=== PATIENT | male | born 1955 | race Caucasian/White ===

== ENCOUNTER 2017-02-09 23:42 | Emergency (ER) | payer MEDICARE, MEDICAID ==
[~2017-02-09] VITALS: Ht 165.1 cm; Wt 64.0 kg
[~2017-02-09 23:42] MED LIST: ACET-2178 PO; CLON0.1T PO; DOCU-150 PO; LACT10SO PO; LORA-250 PO; MYCO180T3 PO; PRED5TAB48 PO; PROT40 PO
[2017-02-10] MEDS ORDERED: ONDANSETRON HCL 4MG/2ML VIAL IV STA (00:49)
[2017-02-10] MEDS ORDERED: SODIUM CHLORIDE 0.9% 1,000 ML IV ONE (00:49)
[2017-02-10] MEDS ORDERED: MORPHINE SULFATE 4 MG/ML CPJ (NOT FOR IM USE) IV STA (00:49)
[2017-02-10] MEDS ORDERED: LEVOFLOXACIN 750MG PREMIX 150 ML IV ONE (01:00)
[2017-02-10 01:16] LABS: CLARITY URINE CLEAR (CLEAR); COLOR URINE YELLOW (YELLOW); GLUCOSE URINE NEGATIVE (NEGATIVE); KETONES URINE NEGATIVE (NEGATIVE); LEUKOCYTE ESTERASE URINE NEGATIVE (NEGATIVE); NITRITE URINE NEGATIVE (NEGATIVE); OCCULT BLOOD URINE NEGATIVE (NEGATIVE); PH URINE 6.5 (4.5-8.0); PROTEIN URINE NEGATIVE (NEGATIVE); SPECIFIC GRAVITY URINE 1.007 (1.005-1.030); UROBILINOGEN URINE 0.2 E.U./dL (0.2-1.0)
[2017-02-10 01:30] LABS: HEMATOCRIT. 41.4 % (42.0-52.0); HEMOGLOBIN. 14.4 g/dL (14.0-18.0); MEAN CORPUSCULAR HEMOGLOBIN 30.3 pg (28.0-32.0); MEAN CORPUSCULAR HGB CONC 34.7 g/dL (31.0-37.0); MEAN CORPUSCULAR VOLUME 87.2 fL (80.0-94.0); MEAN PLATELET VOLUME 6.6 fl (7.4-10.4); PLATELET 197 x1000/uL (130-400); RED BLOOD CELL COUNT 4.75 mill/uL (4.7-6.1)
[2017-02-10 01:37] LABS: CHLORIDE 92 mEq/L (98-107); INDEX HEMOLYSI 3 (1-3); INDEX ICTERIC 1 (1-4); INDEX LIPEMIC 1 (1-3); PROTHROMBIN TIME 10.7 sec
[2017-02-10 01:45] LABS: DIFFERENTIAL COMMENT 1
[2017-02-10 01:46] LABS: ALANINE AMINOTRANSFERASE 25 IU/L (13-61); ALBUMIN 3.5 g/dL (3.4-5.0); ANION GAP 16; CALCIUM 9.3 mg/dL (8.5-10.1); CARBON DIOXIDE 24 mEq/L (21-32); LIPASE 128 IU/L (73-393); UREA NITROGEN BLOOD 17 mg/dL (7-21); eGFR > 60 mL/min (>60)
[2017-02-10 03:27] LABS: PLATELET ESTIMATE NORMAL
[2017-02-10 05:12] VITALS: BP 19/86
== END 2017-02-10 05:12 | disposition home or self-care (01) ==
LOC: ER 23:42
DX: R35.8 Other polyuria (principal); R33.9 Retention of urine, unspecified; R10.32 Left lower quadrant pain; J45.909 Unspecified asthma, uncomplicated; I10 Essential (primary) hypertension; E11.9 Type 2 diabetes mellitus without complications; Z94.0 Kidney transplant status; Z98.890 Other specified postprocedural states
CPT/HCPCS: 36415; 51702; 74176; 80053; 81003; 83605; 83690; 85025; 85610; 87040; 87086; 96365; 96375; 99285; J1956; J2270; J2405; J7040; J7030; A4315

== ENCOUNTER 2017-05-03 04:22 | Inpatient (IN) | payer MEDICARE, MEDICAID ==
[~2017-05-03] VITALS: Ht 160 cm; Wt 72.6 kg
[2017-05-03 05:31] LABS: BASOPHILS % 0.9 % (0.0-2.0); EOSINOPHILS % 1.6 % (0.0-5.0); HEMATOCRIT. 36.1 % (42.0-52.0); HEMOGLOBIN. 12.6 g/dL (14.0-18.0); LYMPHOCYTES % 18.4 % (20.0-50.0); MEAN CORPUSCULAR HEMOGLOBIN 30.2 pg (28.0-32.0); MEAN CORPUSCULAR VOLUME 86.6 fL (80.0-94.0); MEAN PLATELET VOLUME 6.4 fl (7.4-10.4); MONOCYTES % 11.2 % (2.0-8.0); NEUTROPHILS % 67.9 % (40.0-76.0); PLATELET 266 x1000/uL (130-400); RED BLOOD CELL COUNT 4.17 mill/uL (4.7-6.1); RED CELL DISTRIBUTION WIDTH 14.2 % (11.6-14.6)
[2017-05-03 05:34] LABS: CARBON DIOXIDE 22 mEq/L (21-32); CHLORIDE 95 mEq/L (98-107)
[2017-05-03 05:40] LABS: TROPONIN I < 0.02 ng/mL (0.00-0.04)
[2017-05-03] MEDS ORDERED: ONDANSETRON HCL 4MG/2ML VIAL IV PRN (09:45)
[2017-05-03] MEDS ORDERED: LORAZEPAM 2MG/ML CPJ IV PRN (09:45)
[2017-05-03] MEDS ORDERED: CLONIDINE 0.1MG TABLET PO PRN (09:45)
[2017-05-03] MEDS ORDERED: NA PHOS,M-B/NA PHOS,DI-BA ENEMA 118ML PR PRN (09:45)
[2017-05-03] MEDS ORDERED: HYDROCODONE/ACETAMINOPHEN 5/325MG TABLET PO PRN (09:45)
[2017-05-03] MEDS ORDERED: DIPHENHYDRAMINE 50MG/ML VIAL IV PRN (09:45)
[2017-05-03] MEDS ORDERED: GUAIFENESIN 200MG/10ML SUGAR FREE UDC PO PRN (09:45)
[2017-05-03] MEDS ORDERED: ACETAMINOPHEN 325MG TABLET PO PRN (09:45)
[2017-05-03] MEDS ORDERED: IPRATROPIUM/ALBUTEROL 0.5-3(2.5)MG/3ML NEB INH PRN (09:45)
[2017-05-03] MEDS ORDERED: MAGNESIUM/ALUMINUM HYDROXIDE/SIMETHICONE 30ML UDC PO PRN (09:45)
[2017-05-03] MEDS ORDERED: DOCUSATE SODIUM 100MG CAPSULE PO PRN (09:45)
[2017-05-03 09:54] VITALS: BP 136/79
[2017-05-03 10:00] VITALS: BP 136/79
[2017-05-03] MEDS ORDERED: AMLODIPINE 10MG TABLET PO SCH (10:00)
[2017-05-03] MEDS ORDERED: LISINOPRIL 20MG TABLET PO SCH (10:15)
[2017-05-03] MEDS ORDERED: ASPIRIN 81MG EC TABLET PO SCH (11:00)
[2017-05-03] MEDS ORDERED: METOPROLOL TARTRATE 25MG TABLET PO SCH (11:00)
[2017-05-03 12:00] VITALS: BP 114/76
== END 2017-05-03 14:05 | disposition left against medical advice (07) | DRG 291 ==
LOC: ER 04:34 → 8WST 06:39 → ENRESERV 08:25
PROVIDERS: ADMIT Internal Medicine; ATTEND Internal Medicine
DX: I11.0 Hypertensive heart disease with heart failure (principal); G93.40 Encephalopathy, unspecified; E46 Unspecified protein-calorie malnutrition; Z94.0 Kidney transplant status; G90.8 Other disorders of autonomic nervous system; E11.9 Type 2 diabetes mellitus without complications; D64.9 Anemia, unspecified; I50.9 Heart failure, unspecified; I16.0 Hypertensive urgency; J44.9 Chronic obstructive pulmonary disease, unspecified; E78.5 Hyperlipidemia, unspecified; Z53.21 Procedure and treatment not carried out due to patient leaving prior to being seen by health care provider; I25.10 Atherosclerotic heart disease of native coronary artery without angina pectoris; N40.0 Benign prostatic hyperplasia without lower urinary tract symptoms; I25.2 Old myocardial infarction; Z79.899 Other long term (current) drug therapy; Z68.28 Body mass index [BMI] 28.0-28.9, adult
CPT/HCPCS: 36415; 70450; 71010; 80053; 84484; 85025; 93005; 99285; J2405

== ENCOUNTER 2017-06-23 22:24 | Inpatient (IN) | payer MEDICARE, MEDICAID ==
[~2017-06-23] VITALS: Ht 165.1 cm; Wt 72.6 kg
[2017-06-23] MEDS ORDERED: ONDANSETRON HCL 4MG/2ML VIAL IV STA (22:44)
[2017-06-23] MEDS ORDERED: MORPHINE SULFATE 4 MG/ML CPJ (NOT FOR IM USE) IV STA (22:44)
[2017-06-23] MEDS ORDERED: SODIUM CHLORIDE 0.9% 1,000 ML IV ONE (22:44)
[2017-06-23 23:10] LABS: BASOPHILS % 0.6 % (0.0-2.0); EOSINOPHILS % 0.4 % (0.0-5.0); HEMATOCRIT. 41.9 % (42.0-52.0); HEMOGLOBIN. 14.4 g/dL (14.0-18.0); LYMPHOCYTES % 11.5 % (20.0-50.0); MEAN CORPUSCULAR HEMOGLOBIN 30.6 pg (28.0-32.0); MEAN CORPUSCULAR VOLUME 88.8 fL (80.0-94.0); MEAN PLATELET VOLUME 6.6 fl (7.4-10.4); MONOCYTES % 10.9 % (2.0-8.0); NEUTROPHILS % 76.6 % (40.0-76.0); PLATELET 246 x1000/uL (130-400); RED BLOOD CELL COUNT 4.72 mill/uL (4.7-6.1); RED CELL DISTRIBUTION WIDTH 14.9 % (11.6-14.6)
[2017-06-23 23:20] LABS: INR 1.1; PROTHROMBIN TIME 11.1 sec (9.4-11.6)
[2017-06-23 23:31] LABS: CARBON DIOXIDE 23 mEq/L (21-32); CHLORIDE 97 mEq/L (98-107); ETHANOL BLOOD < 10 mg/dL; TROPONIN I < 0.02 ng/mL (0.00-0.04)
[2017-06-24 00:48] LABS: CLARITY URINE CLEAR (CLEAR); COLOR URINE YELLOW (YELLOW); GLUCOSE URINE NEGATIVE (NEGATIVE); KETONES URINE NEGATIVE (NEGATIVE); LEUKOCYTE ESTERASE URINE NEGATIVE (NEGATIVE); NITRITE URINE NEGATIVE (NEGATIVE); OCCULT BLOOD URINE NEGATIVE (NEGATIVE); PH URINE 6.5 (4.5-8.0); PROTEIN URINE 1+ (NEGATIVE); SPECIFIC GRAVITY URINE 1.012 (1.005-1.030); UROBILINOGEN URINE 0.2 E.U./dL (0.2-1.0)
[2017-06-24 01:01] LABS: *AMPHETAMINES SCREEN URINE NEGATIVE (NEGATIVE); *BARBITURATES SCREEN URINE NEGATIVE (NEGATIVE); *BENZODIAZEPINES SCREEN URINE NEGATIVE (NEGATIVE); *COCAINE SCREEN URINE NEGATIVE (NEGATIVE); CANNABINOID URINE SCREEN NEGATIVE (NEGATIVE); METHADONE URINE SCREEN NEGATIVE (NEGATIVE); OPIATES URINE SCREEN PRESUMTIVE POSITIVE (NEGATIVE); PHENCYCLIDINE URINE SCREEN NEGATIVE (NEGATIVE)
[2017-06-24] MEDS ORDERED: SODIUM CHLORIDE 0.9% 1,000 ML IV SCH (01:01)
[2017-06-24 05:15] VITALS: BP 151/53
[2017-06-24] MEDS ORDERED: DEXTROSE 50% WATER 50ML SYRINGE IV PRN (05:15)
[2017-06-24] MEDS ORDERED: HYDROMORPHONE HCL/PF 2MG/ML CPJ IV PRN (05:15)
[2017-06-24] MEDS ORDERED: ONDANSETRON HCL 4MG/2ML VIAL IV PRN (05:15)
[2017-06-24] MEDS ORDERED: IOHEXOL-300 100 ML BOTTLE ONE (06:00)
[2017-06-24] MEDS ORDERED: SODIUM CHLORIDE 0.9% 10ML VIAL ONE (06:00)
[2017-06-24] MEDS: BLOOD SUGAR DIAGNOSTIC STRIP TEST SCH ×4 (06:33→21:47)
[2017-06-24 07:34] LABS: HEMATOCRIT. 42.6 % (42.0-52.0); HEMOGLOBIN. 14.5 g/dL (14.0-18.0); MEAN CORPUSCULAR VOLUME 88.3 fL (80.0-94.0); MEAN PLATELET VOLUME 6.6 fl (7.4-10.4); PLATELET 243 x1000/uL (130-400); RED BLOOD CELL COUNT 4.82 mill/uL (4.7-6.1); RED CELL DISTRIBUTION WIDTH 14.9 % (11.6-14.6)
[2017-06-24 07:51] LABS: CARBON DIOXIDE 24 mEq/L (21-32); CHLORIDE 101 mEq/L (98-107)
[2017-06-24 08:00] VITALS: BP 131/84
[2017-06-24] MEDS: INSULIN LISPRO 100 UNITS/ML SUBCUT SCH ×4 (08:10→21:00)
[2017-06-24] MEDS: FAMOTIDINE 20MG/2ML VIAL IV SCH ×2 (08:45→21:00)
[2017-06-24] MEDS ORDERED: ENOXAPARIN 30MG/0.3ML SYR SUBCUT SCH (09:00)
[2017-06-24] MEDS ORDERED: ENOXAPARIN 40MG/0.4ML SYR SUBCUT SCH (09:00)
[2017-06-24] MEDS ORDERED: PANTOPRAZOLE SODIUM 40 MG/VIAL IV SCH (09:00)
[2017-06-24] MEDS ORDERED: PROG1 PO (11:15)
[2017-06-24 12:00] VITALS: BP 123/78
[2017-06-24] MEDS: METOCLOPRAMIDE HCL 10MG/2ML VIAL IV SCH ×3 (12:33→23:42)
[2017-06-24] MEDS ORDERED: CLONIDINE 0.1MG TABLET PO PRN (15:15)
[2017-06-24] MEDS ORDERED: ACETAMINOPHEN 325MG TABLET PO PRN (15:15)
[2017-06-24] MEDS ORDERED: LORAZEPAM 1MG TABLET PO PRN (15:15)
[2017-06-24 16:00] VITALS: BP 108/68
[2017-06-24] MEDS: DOCUSATE SODIUM 100MG CAPSULE PO SCH (16:12)
[2017-06-24] MEDS: TACROLIMUS 1MG CAPSULE PO SCH (16:12)
[2017-06-24] MEDS: MYCOPHENOLATE SODIUM 180 MG TABLET.DR PO SCH (16:13)
[2017-06-24 16:35] LABS: PLATELET ESTIMATE NORMAL
[2017-06-24] MEDS: PREDNISONE 5MG TABLET PO SCH (17:19)
[2017-06-24 20:00] VITALS: BP 152/62
[2017-06-25] VITALS: BP 137/81
[2017-06-25 04:00] VITALS: BP 146/95
[2017-06-25] MEDS: METOCLOPRAMIDE HCL 10MG/2ML VIAL IV SCH ×2 (04:39→12:00)
[2017-06-25] MEDS: BLOOD SUGAR DIAGNOSTIC STRIP TEST SCH (05:47)
[2017-06-25] MEDS: INSULIN LISPRO 100 UNITS/ML SUBCUT SCH (07:47)
[2017-06-25 08:00] VITALS: BP 131/90
[2017-06-25] MEDS: TACROLIMUS 1MG CAPSULE PO SCH (09:00)
[2017-06-25] MEDS: DOCUSATE SODIUM 100MG CAPSULE PO SCH (09:00)
[2017-06-25] MEDS ORDERED: ENOXAPARIN 40MG/0.4ML SYR SUBCUT SCH (09:00)
[2017-06-25] MEDS: FAMOTIDINE 20MG/2ML VIAL IV SCH (09:00)
[2017-06-25] MEDS: PREDNISONE 5MG TABLET PO SCH (09:00)
[2017-06-25] MEDS: MYCOPHENOLATE SODIUM 180 MG TABLET.DR PO SCH (09:02)
[2017-06-25 10:53] VITALS: BP 131/90
[2017-06-25 12:00] VITALS: BP 136/88
== END 2017-06-25 12:00 | disposition home or self-care (01) | DRG 389 ==
LOC: ER 22:24 → 7WST 06-24 01:04 → EDBEDREQ 06-24 01:17 → ENRESERV 06-24 01:21
PROVIDERS: ADMIT Hospitalist; ATTEND Hospitalist
DX: K56.7 Ileus, unspecified (principal); Z94.0 Kidney transplant status; I10 Essential (primary) hypertension; E11.9 Type 2 diabetes mellitus without complications; K57.90 Diverticulosis of intestine, part unspecified, without perforation or abscess without bleeding; Z79.899 Other long term (current) drug therapy
CPT/HCPCS: 36415; 71010; 74000; 74177; 80048; 80053; 80305; 81001; 82962; 83605; 83690; 84484; 85025; 85610; 87040; 87086; 93005; 93970; 96361; 96374; 96375; 99291; A4216; G0482; J1170; J1650; J2270; J2405; J2765; J3490; J7030; J7507; J7512; J7517; Q9967

== ENCOUNTER 2018-06-13 19:15 | Emergency (ER) | payer MEDICARE, MEDICAID ==
[~2018-06-13] VITALS: Ht 170.2 cm; Wt 82.0 kg
[~2018-06-13 19:15] MED LIST changes: +ASPI-1158 PO; +ATOR20TA PO; +CINA30 PO; +CLOP75TA16 PO; +DILT180C3 PO; +FINA5TAB3 PO; +FISH GT; +NITR0.4T49 SL; +PROG1 PO; +SIME80TA15 PO; +TAMS-11 PO
[2018-06-13] MEDS ORDERED: SODIUM CHLORIDE 0.9% 1,000 ML IV ONE (20:21)
[2018-06-13] MEDS ORDERED: ACETAMINOPHEN 325MG TABLET PO STA (20:21)
[2018-06-13 21:00] LABS: HEMATOCRIT. 43.8 % (42.0-52.0); HEMOGLOBIN. 15.1 g/dL (14.0-18.0); MEAN CORPUSCULAR HEMOGLOBIN 30.9 pg (28.0-32.0); MEAN CORPUSCULAR VOLUME 89.9 fL (80.0-94.0); MEAN PLATELET VOLUME 6.6 fl (7.4-10.4); PLATELET 270 x1000/uL (130-400); RED BLOOD CELL COUNT 4.87 mill/uL (4.7-6.1)
[2018-06-13 21:01] LABS: PROTHROMBIN TIME 10.3 sec (9.1-11.1)
[2018-06-13 21:04] LABS: CHLORIDE 100 mEq/L (98-107)
[2018-06-13 21:14] LABS: ATYPICAL LYMPHOCYTES 2; PLATELET ESTIMATE NORMAL
[2018-06-14] MEDS ORDERED: IPRATROPIUM/ALBUTEROL 0.5-3(2.5)MG/3ML NEB INH PRN
[2018-06-14] MEDS ORDERED: MAGNESIUM/ALUMINUM HYDROXIDE/SIMETHICONE 30ML UDC PO PRN
[2018-06-14] MEDS ORDERED: DOCUSATE SODIUM 100MG CAPSULE PO PRN
[2018-06-14] MEDS ORDERED: HYDROCODONE/ACETAMINOPHEN 5/325MG TABLET PO PRN
[2018-06-14] MEDS ORDERED: DIPHENHYDRAMINE 50MG/ML VIAL IV PRN
[2018-06-14] MEDS ORDERED: GUAIFENESIN 200MG/10ML SUGAR FREE UDC PO PRN
[2018-06-14] MEDS ORDERED: ACETAMINOPHEN 650MG SUPP PR PRN
[2018-06-14] MEDS ORDERED: ACETAMINOPHEN 650MG/20.3ML UDC GT PRN
[2018-06-14] MEDS ORDERED: ACETAMINOPHEN 325MG TABLET PO PRN
[2018-06-14] MEDS ORDERED: ONDANSETRON HCL 4MG/2ML INJ IV PRN
[2018-06-14 00:10] LABS: CLARITY URINE CLEAR (CLEAR); COLOR URINE YELLOW (YELLOW); KETONES URINE NEGATIVE (NEGATIVE); LEUKOCYTE ESTERASE URINE NEGATIVE (NEGATIVE); NITRITE URINE NEGATIVE (NEGATIVE); OCCULT BLOOD URINE NEGATIVE (NEGATIVE); PH URINE 7.5 (4.5-8.0); PROTEIN URINE NEGATIVE (NEGATIVE); SPECIFIC GRAVITY URINE 1.003 (1.005-1.030); UROBILINOGEN URINE 0.2 E.U./dL (0.2-1.0)
[2018-06-14] MEDS ORDERED: CLONIDINE 0.1MG TABLET PO PRN ×2 (00:15)
[2018-06-14] MEDS ORDERED: SIMETHICONE 80MG TABLET CHEW PO SCH (00:15)
[2018-06-14 00:49] VITALS: BP 138/75
[2018-06-14] MEDS ORDERED: SODIUM CHLORIDE 0.9% INJ 3ML FLUSH IVF SCH (06:00)
[2018-06-14] MEDS ORDERED: MYCOPHENOLATE SODIUM 180 MG TABLET.DR PO SCH (09:00)
[2018-06-14] MEDS ORDERED: CINACALCET HCL 30MG TABLET PO SCH (09:00)
[2018-06-14] MEDS ORDERED: FISH OIL/OMEGA-3 FATTY ACIDS 1000MG CAPSULE GT SCH (09:00)
[2018-06-14] MEDS ORDERED: DILTIAZEM HCL 180MG CAPSULE CD 24HR PO SCH (09:00)
[2018-06-14] MEDS ORDERED: TACROLIMUS 1MG CAPSULE PO SCH (09:00)
[2018-06-14] MEDS ORDERED: TAMSULOSIN HCL 0.4MG SR CAPSULE PO SCH (21:00)
[2018-06-14] MEDS ORDERED: ATORVASTATIN CALCIUM 20MG TABLET PO SCH (21:00)
== END 2018-06-14 01:11 | disposition left against medical advice (07) ==
LOC: ER 19:15 → EDBEDREQ 21:41 → CANBEDREQ 21:56 → ER 06-14 01:11
DX: R53.1 Weakness (principal); R11.0 Nausea; I10 Essential (primary) hypertension; E11.9 Type 2 diabetes mellitus without complications; T86.10 Unspecified complication of kidney transplant; Z79.82 Long term (current) use of aspirin
CPT/HCPCS: 36415; 70450; 71045; 80053; 81003; 83605; 83880; 84484; 85025; 85610; 87040; 87086; 93005; 99285; J7030

== ENCOUNTER 2018-11-29 16:51 | Emergency (ER) | payer MEDICARE, MEDICAID ==
[~2018-11-29] VITALS: Ht 167.6 cm; Wt 85.0 kg
[2018-11-29 16:53] VITALS: BP 134/90
== END 2018-11-29 19:30 | disposition left against medical advice (07) ==
LOC: ER 17:06
DX: Z53.21 Procedure and treatment not carried out due to patient leaving prior to being seen by health care provider (principal); R42 Dizziness and giddiness; I10 Essential (primary) hypertension
CPT/HCPCS: 93005

== ENCOUNTER 2019-01-13 15:07 | Inpatient (IN) | payer MEDICARE, MEDICAID ==
[~2019-01-13] VITALS: Ht 162.6 cm; Wt 68.9 kg
[2019-01-13] MEDS ORDERED: SODIUM CHLORIDE 0.9% 1,000 ML IV ONE (15:41)
[2019-01-13] MEDS ORDERED: ONDANSETRON HCL 4MG/2ML INJ IV STA (15:41)
[2019-01-13] MEDS ORDERED: ASPIRIN 81MG TABLET PO ONE (15:45)
[2019-01-13 16:05] LABS: BASOPHILS % 0.8 % (0.0-2.0); CHLORIDE 96 mEq/L (98-107); EOSINOPHILS % 0.8 % (0.0-5.0); HEMATOCRIT. 36.5 % (42.0-52.0); HEMOGLOBIN. 12.7 g/dL (14.0-18.0); LYMPHOCYTES % 12.4 % (20.0-50.0); MEAN CORPUSCULAR HEMOGLOBIN 31.1 pg (28.0-32.0); MEAN CORPUSCULAR VOLUME 89.6 fL (80.0-94.0); MEAN PLATELET VOLUME 6.2 fl (7.4-10.4); MONOCYTES % 12.7 % (2.0-8.0); NEUTROPHILS % 73.3 % (40.0-76.0); PLATELET 293 x1000/uL (130-400); RED BLOOD CELL COUNT 4.07 mill/uL (4.7-6.1); RED CELL DISTRIBUTION WIDTH 13.8 % (11.6-14.6)
[2019-01-13 16:07] LABS: PROTHROMBIN TIME 10.8 sec (9.6-11.0)
[2019-01-13] MEDS ORDERED: SODIUM CHLORIDE 0.9% 1,000 ML IV SCH (20:23)
[2019-01-13] MEDS ORDERED: MAGNESIUM/ALUMINUM HYDROXIDE/SIMETHICONE 30ML UDC PO PRN (20:30)
[2019-01-13] MEDS ORDERED: DEXTROSE 50% WATER 50ML SYRINGE IV PRN ×2 (20:30)
[2019-01-13] MEDS ORDERED: CLONIDINE 0.1MG TABLET PO PRN (20:30)
[2019-01-13] MEDS ORDERED: DOCUSATE SODIUM 100MG CAPSULE PO PRN (20:30)
[2019-01-13] MEDS ORDERED: ACETAMINOPHEN 325MG TABLET PO PRN (20:30)
[2019-01-13 22:00] VITALS: BP 140/89
[2019-01-13] MEDS: INSULIN LISPRO 100 UNITS/ML SUBCUT SCH (22:00)
[2019-01-13] MEDS: BLOOD SUGAR DIAGNOSTIC STRIP TEST SCH (22:00)
[2019-01-13] MEDS ORDERED: ZOLPIDEM TARTRATE 5MG TABLET PO PRN (22:38)
[2019-01-13] MEDS ORDERED: LORAZEPAM 0.5MG TABLET PO PRN (22:38)
[2019-01-13] MEDS ORDERED: INSULIN GLARGINE UD 100 UNITS/ML SYR SUBCUT SCH (23:00)
[2019-01-14] VITALS: BP 128/75
[2019-01-14 04:00] VITALS: BP 128/80
[2019-01-14] MEDS: BLOOD SUGAR DIAGNOSTIC STRIP TEST SCH ×2 (06:07→12:40)
[2019-01-14 07:12] LABS: HEMATOCRIT. 38.5 % (42.0-52.0); HEMOGLOBIN. 13.4 g/dL (14.0-18.0); MEAN CORPUSCULAR VOLUME 89.2 fL (80.0-94.0); MEAN PLATELET VOLUME 6.5 fl (7.4-10.4); PLATELET 290 x1000/uL (130-400); RED BLOOD CELL COUNT 4.32 mill/uL (4.7-6.1); RED CELL DISTRIBUTION WIDTH 14.1 % (11.6-14.6)
[2019-01-14 07:41] LABS: CHLORIDE 102 mEq/L (98-107)
[2019-01-14 07:47] LABS: PHOSPHORUS 3.6 mg/dL (2.5-4.9)
[2019-01-14 07:48] LABS: LDL CHOLESTEROL 88 mg/dL (5-100)
[2019-01-14 07:49] LABS: HDL CHOLESTEROL 39 mg/dL (40-59)
[2019-01-14] MEDS: INSULIN LISPRO 100 UNITS/ML SUBCUT SCH ×2 (08:04→13:10)
[2019-01-14] MEDS: TACROLIMUS 1MG CAPSULE PO SCH ×2 (10:53→17:29)
[2019-01-14] MEDS ORDERED: MAGNESIUM 1 G PREMIX 100 ML IV NR (11:00)
[2019-01-14 11:22] LABS: PLATELET ESTIMATE NORMAL
[2019-01-14] MEDS ORDERED: MYCOPHENOLATE SODIUM 180 MG TABLET.DR PO SCH (17:00)
[2019-01-14] MEDS ORDERED: GABAPENTIN 100MG CAPSULE PO SCH (17:00)
[2019-01-14 17:04] VITALS: BP 145/76
[2019-01-15] MEDS ORDERED: MEDICATION NOT ON FORMULARY EA (Prednisone 5 MG) PO SCH (09:00)
[2019-01-15] MEDS ORDERED: PREDNISONE 5MG TABLET PO SCH (09:00)
== END 2019-01-14 17:50 | disposition home or self-care (01) | DRG 683 ==
LOC: ER 15:07 → 7WST 18:48 → EDBEDREQSVC 18:48 → EDBEDREQ 18:48 → EDBEDREQTM 18:48 → ENRESERV 20:51
PROVIDERS: ADMIT Family Medicine Adult Medicine; ATTEND Family Medicine Adult Medicine
DX: N17.9 Acute kidney failure, unspecified (principal); E87.1 Hypo-osmolality and hyponatremia; Z94.0 Kidney transplant status; I20.8 Other forms of angina pectoris; D64.9 Anemia, unspecified; E78.5 Hyperlipidemia, unspecified; K21.9 Gastro-esophageal reflux disease without esophagitis; N40.0 Benign prostatic hyperplasia without lower urinary tract symptoms; I11.9 Hypertensive heart disease without heart failure; F41.9 Anxiety disorder, unspecified; E11.65 Type 2 diabetes mellitus with hyperglycemia; E86.9 Volume depletion, unspecified; Z79.899 Other long term (current) drug therapy; Z82.49 Family history of ischemic heart disease and other diseases of the circulatory system
CPT/HCPCS: 36415; 71045; 80048; 80061; 82962; 83036; 83735; 83880; 84100; 84443; 84484; 93005; 93306; 96361; 96374; 99285; J1815; J2405; J3475; J7030; J7507; J7517

== ENCOUNTER → 2019-08-14 | Outpatient (CLI) | payer MEDICARE, MEDICAID ==
[~2019-08-14] MED LIST changes: -ACET-2178 PO; -CLOP75TA16 PO; +CLOP75TA4 PO; +TOPUD PO
== END | disposition home or self-care (01) ==
LOC: RAD 13:57
PROVIDERS: ATTEND Ophthalmology
DX: J45.909 Unspecified asthma, uncomplicated (principal); J06.9 Acute upper respiratory infection, unspecified
CPT/HCPCS: 71046

== ENCOUNTER → 2020-02-11 | Outpatient (CLI) | payer MEDICARE, MEDICAID ==
[~2020-02-11] MED LIST changes: -DILT180C3 PO; +DILT180C87 PO
== END | disposition home or self-care (01) ==
LOC: RAD 13:27
PROVIDERS: ATTEND Ophthalmology
DX: J92.9 Pleural plaque without asbestos (principal); I51.7 Cardiomegaly; I70.0 Atherosclerosis of aorta; R07.81 Pleurodynia; Q25.46 Tortuous aortic arch
CPT/HCPCS: 71046